=== PATIENT | female | born 1950 | race African-American/Black ===

== ENCOUNTER 2021-05-01 16:09 | Emergency (ER) | payer OTHER ==
[~2021-05-01] VITALS: Ht 167.6 cm; Wt 89.0 kg
[2021-05-01 17:39] LABS: BASOPHILS % 0.3 % (0.0-2.0); EOSINOPHILS % 0.7 % (0.0-5.0); HEMATOCRIT. 41.3 % (36.0-48.0); HEMOGLOBIN. 13.8 g/dL (12.0-16.0); LYMPHOCYTES % 13.4 % (20.0-50.0); MEAN CORPUSCULAR HEMOGLOBIN 29.7 pg (28.0-32.0); MEAN PLATELET VOLUME 8.7 fl (7.4-10.4); MONOCYTES % 9.4 % (2.0-8.0); NEUTROPHILS % 76.2 % (40.0-76.0); PLATELET 138 x1000/uL (130-400); RED BLOOD CELL COUNT 4.64 mill/uL (4.2-5.4); RED CELL DISTRIBUTION WIDTH 15.7 % (11.6-14.6)
[2021-05-01 17:44] LABS: CHLORIDE 105 mEq/L (98-107)
[2021-05-01 17:48] LABS: ETHANOL BLOOD < 10 mg/dL
[2021-05-01 17:50] LABS: BETA HYDROXYBUTYRATE 0.1 mMol/L (0.0-0.3); LDL CHOLESTEROL 77 mg/dL (5-100)
[2021-05-01 17:52] LABS: CREATINE KINASE 124 IU/L (26-192)
[2021-05-01] MEDS ORDERED: IOHEXOL-350 100 ML BOTTLE ONE (20:07)
[2021-05-01] MEDS ORDERED: ASPIRIN 81MG TABLET PO ONE (20:15)
[2021-05-01 20:29] LABS: INR 1.1; PROTHROMBIN TIME 11.6 sec (9.6-11.0)
[2021-05-01] MEDS ORDERED: FUROSEMIDE 20MG/2ML VIAL IVP ONE (20:30)
[2021-05-02 01:13] VITALS: BP 150/74
[2021-05-02] MEDS ORDERED: ASPIRIN 81MG TABLET PO SCH (01:30)
[2021-05-02] MEDS ORDERED: FUROSEMIDE 20MG/2ML VIAL IVP SCH (01:30)
== END 2021-05-02 01:20 | disposition short-term general hospital (02) ==
LOC: ER 16:09 → CANBEDREQ 05-02 02:21
DX: I63.9 Cerebral infarction, unspecified (principal); E11.65 Type 2 diabetes mellitus with hyperglycemia; D72.829 Elevated white blood cell count, unspecified; I10 Essential (primary) hypertension
CPT/HCPCS: 36415; 70450; 70496; 70498; 71045; 80053; 80320; 82010; 82550; 82962; 83721; 83880; 84484; 85025; 85610; 93005; 96374; 99291; J1940; Q9967; G0480